=== PATIENT | male | born 1955 | race Two or more races ===

== ENCOUNTER 2018-02-16 14:28 | Outpatient (CLI) | payer OTHER ==
[~2018-02-16 14:28] MED LIST: COZAAR100 MG; NORVASC2.5 M1; NORVASC2.5 M1 PO
== END 2018-02-16 14:37 | disposition home or self-care (01) ==
LOC: RAD 14:28
DX: M25.512 Pain in left shoulder (principal)

== ENCOUNTER 2018-07-02 07:57 | Outpatient (CLI) | payer OTHER | END 2018-07-02 08:04 | disposition home or self-care (01) | LOC: LAB 07:57 | DX: Z00.00 Encounter for general adult medical examination without abnormal findings (principal); I10 Essential (primary) hypertension ==

== ENCOUNTER 2022-09-03 12:00 | Outpatient (CLI) | payer OTHER | END 2022-09-03 12:10 | disposition home or self-care (01) | LOC: PPH VACUNA 12:00 | PROVIDERS: ATTEND Emergency Medicine Pediatric Emergency Medicine | DX: Z23 Encounter for immunization (principal) ==

== ENCOUNTER 2022-11-29 06:22 | Emergency (ER) | payer OTHER ==
[~2022-11-29] VITALS: Ht 170.2 cm; Wt 88.5 kg
== END 2022-11-29 11:11 ==
LOC: ER 06:22
DX: T78.49XA Other allergy, initial encounter (principal); F41.9 Anxiety disorder, unspecified; I10 Essential (primary) hypertension; Z91.013 Allergy to seafood; Z88.2 Allergy status to sulfonamides; Z88.8 Allergy status to other drugs, medicaments and biological substances